=== PATIENT | female | born 2000 | race African-American/Black ===

== ENCOUNTER 2022-10-09 04:28 | Emergency (ER) | payer OTHER ==
[2022-10-09 04:46] VITALS: BP 128/85; PULSE 109; RESP 18; TEMP 98.5; BMI 26.5
== END 2022-10-09 05:00 | disposition home or self-care (01) ==
LOC: JER 04:28
DX: S60.444A External constriction of right ring finger, initial encounter (principal); W49.04XA Ring or other jewelry causing external constriction, initial encounter
CPT/HCPCS: 99283-25